=== PATIENT | female | born 1980 ===

== ENCOUNTER 2021-07-17 08:00 | Outpatient (CLI) | payer OTHER ==
--- NOTE | 2021-07-17 16:52 | XRAY Report ---
PROCEDURE: Finger(s) RT INDICATIONS: DOG BITE 1ST DIGIT RIGHT HAND TECHNIQUE: AP hand, 2 views of the right first finger(s) acquired. COMPARISON: None FINDINGS: Bones: No fractures or dislocations. No suspicious bony lesions. Soft tissues: No suspicious soft tissue calcifications. No foreign body. IMPRESSION: No visible fracture or foreign body. Reviewed by: Chary Mendez MD on 07/17/2021 4:51 PM PDT Approved by: Chary Mendez MD on 07/17/2021 4:51 PM PDT Station ID: [id number]
== END 2021-07-17 23:58 | disposition home or self-care (01) ==
LOC: DI.S 08:00
PROVIDERS: ATTEND Physician Assistant
DX: S61.451A Open bite of right hand, initial encounter (principal)